=== PATIENT | male | born 1970 | race African-American/Black ===

== ENCOUNTER 2021-09-15 01:05 | Emergency (ER) | payer SELFPAY ==
[2021-09-15] MEDS ORDERED: LIDOCAINE PF 100 MG/5 ML (CARDIAC SYRINGE) IV ONE (02:11)
--- NOTE | 2021-09-15 03:03 | Emergency Department Report ---
- General Chief Complaint: Wound/Laceration Stated Complaint: LACERATION TO RIGHT HAND Time Seen by Provider: 09/15/21 02:57 Source: patient Mode of arrival: Ambulatory Limitations: No Limitations - History of Present Illness Initial Comments: 50 yo M who present with laceration to his right posterior hand laceration after glass mirror fell on his hand. Bleeding is minimal with direct pressure. Pt is still able to wiggle his right fingers. No other modifying or associated factors. - Related Data Previous Rx's Medication Instructions Recorded Last Taken Type Docusate Sodium [Colace] 100 mg PO BID PRN 5 Days #09/15/21 Unknown Rx capsule NS oxyCODONE /ACETAMINOPHEN [Percocet 1 tab PO Q6HR PRN 5 Days #09/15/21 Unknown Rx 5/325] tablet NS Allergies Allergy/AdvReac Type Severity Reaction Status Date / Time No Known Allergies Allergy Unverified 09/15/21 01:38 ED Review of Systems ROS: Stated complaint: LACERATION TO RIGHT HAND Other details as noted in HPI Comment: All other systems reviewed and negative Skin: other (right posterior hand laceration ) ED Past Medical Hx - Past Medical History Previous Medical History?: No - Surgical History Past Surgical History?: No - Medications Home Medications: Home Medications Medication Instructions Recorded Confirmed Last Taken Type Docusate Sodium [Colace] 100 mg PO BID PRN 5 Days #09/15/21 Unknown Rx capsule NS oxyCODONE /ACETAMINOPHEN [Percocet 1 tab PO Q6HR PRN 5 Days #09/15/21 Unknown Rx 5/325] tablet NS ED Physical Exam - General Limitations: No Limitations General appearance: alert, in no apparent distress - Respiratory Respiratory exam: Present: normal lung sounds bilaterally. Absent: respiratory distress, accessory muscle use - Cardiovascular Cardiovascular Exam: Present: regular rate, normal rhythm, normal heart sounds - GI/Abdominal GI/Abdominal exam: Present: soft, normal bowel sounds, other (pt still above to move his fingers with good blood flow to the fingers--). Absent: distended, tenderness - Extremities Exam Extremities exam: Present: other (5 cm x 1 cm deep laceration to the posterior hand area of 1 st and 2 nd digits ) ED Course Vital Signs 09/15/21 01:39 Temperature 98.6 F Pulse Rate 86 Respiratory 16 Rate Blood Pressure 101/64 O2 Sat by Pulse 98 Oximetry - Reevaluation(s) Reevaluation #1: 09/15/21 03:21 pt still above to move his fingers with good blood flow to the fingers- - Consultations Consultation #1: 09/15/21 03:24 Dr Isidro--consulted who after discussing the patient suggested for patient to follow up with him in the next 1-2 weeks for surgery. He says since this is posterior of the hand and with good blood supply it only needed to be repair in the first 1-2 weeks. Pt is to come to the plastic department at 12 ft floor of [facility]--on Wednesday next week September 23 - Laceration /Wound Repair Right Upper Posterior Lateral Dorsal Hand Wound Location: upper extremity Wound Length (cm): 5 Wound's Depth, Shape: into muscle, linear Wound Explored: no foreign body removed Irrigated w/ Saline (ccs): 100 Betadine Prep?: Yes Anesthesia: 1% Lidocaine Volume Anesthetic (ccs): 8 Wound Debrided: none Wound Repaired With: sutures Suture Size/Type: 4:0, nylon Number of Sutures: 5 Layer Closure?: No Progress: pt tolerated procedure well with good hemostasis-- ED Medical Decision Making - Medical Decision Making here with laceration to right hand-- noted with 5 cm x 1 cm deep laceration to the posterior hand area of 1 st and 2 nd digits--loosely repaired with 4.0 ethlon suture x 5 -- with good hemostasis-- with deep laceration into the muscle flexor/adductor pollicis brevis--and the tendon of the extensor indicies and digitorum-- with this extensive damage will call and have this patient transfer to [facility] for further evaluation and treatment by trauma and hand surgeon-- Critical care attestation.: If time is entered above; I have spent that time in minutes in the direct care of this critically ill patient, excluding procedure time. ED Disposition Clinical Impression: Laceration of hand Qualifiers: Encounter type: initial encounter Foreign body presence: unspecified Laterality: right Qualified Code(s): S61.411A - Laceration without foreign body of right hand, initial encounter Disposition: HOME / SELF CARE / HOMELESS Is pt being admited?: No Does the pt Need Aspirin: No Condition: Stable Instructions: Laceration Care, Adult, [id number], Sutures, Jacob, or Adhesive Wound Closure, [id number] Additional Instructions: It is very important that you call Dr Isidro plastic surgery at 12 th floor on WednesdaySeptember [id number] for outpatient surgery. Take your pain medication as prescribed Please keep your suture area dressed and avoid excess water to prevent infection Call or return to ED if your pain worsen as this could be sign of complication Prescriptions: Docusate Sodium [Colace] 100 mg PO BID PRN 5 Days #10 capsule NS PRN Reason: Constipation oxyCODONE /ACETAMINOPHEN [Percocet 5/325] 1 tab PO Q6HR PRN 5 Days #20 tablet NS PRN Reason: Pain Time of Disposition: 03:33
[2021-09-15 06:38] VITALS: BP 124/78
== END 2021-09-15 04:00 | disposition home or self-care (01) ==
LOC: ED 01:05
DX: S61.411A Laceration without foreign body of right hand, initial encounter (principal); X58.XXXA Exposure to other specified factors, initial encounter; Y93.89 Activity, other specified; Y92.89 Other specified places as the place of occurrence of the external cause; Y99.8 Other external cause status
CPT/HCPCS: 12002; 99282; J2001